=== PATIENT | female | born 1980 | race Caucasian/White ===

== ENCOUNTER → 2023-06-09 15:26 | Outpatient (REF) | payer BC, SELFPAY | LOC: HWWDC 15:26 | PROVIDERS: ATTENDING PHYSICIAN Obstetrics & Gynecology; FAMILY PHYSICIAN Nurse Practitioner | DX: Z12.31 Encounter for screening mammogram for malignant neoplasm of breast (principal) | CPT/HCPCS: 77063; 77067 ==

== ENCOUNTER 2023-10-05 20:51 | Emergency (ER) | payer BC, SELFPAY ==
[2023-10-05 20:53] VITALS: BP 124/71
--- NOTE | 2023-10-05 21:21 | ED.GENMED ---
History of Present Illness
General
Chief Complaint: DVT/Possible Blood Clot
Source: patient and spouse
Exam Limitations: none
Time Seen by Provider: 10/05/23 21:09
Nursing documentation reviewed up to this point in time: agreed with
History of Present Illness
History of Present Illness:
42-year-old female presents to the emergency room for evaluation of redness and swelling of the right leg. Patient reports that yesterday she noticed an area of redness and pain on the right anterior bahena. Today redness was increased and she had
some increased swelling in the anterior bahena; she was concerned that potentially she have a DVT and so she came to the emergency to be assessed. She is on HRT for perimenopausal symptoms. She denies smoking history. Denies any history of DVT/PE.
She denies any other complaints including chest pain or shortness of breath.
Past History
Past History
ED Past Medical History: None
ED Past Surgical History: None
Review of Systems
Review of Systems
All Other Systems: ROS reviewed and negative except as documented in HPI and ROS
Constitutional: Denies fever
Respiratory: Denies trouble breathing
Cardiac: Denies chest pain
Musculoskeletal: Reports other (Minor swelling and redness in the leg)
Phy Exam
Physical Exam
Physical Exam:
General: Well appearing and non-toxic
HEENT: protecting airway
Neck: appears supple
CV: No evidence of cyanosis
Resp: No accessory muscle use
Abd: Non-distended
Extremities: Patient has small area approximately 3 cm diameter circular erythema on the right anterior bahena slightly warm to the touch no induration, no crepitus, no fluctuance; tiny central marking which could be a puncture or bite
Neuro: Alert
Psych: Normal affect
Skin: Intact
Scores
Heart Failure Risk
Heart Failure Risk Score: Not Applicable
Heart Score for Chest Pain Patients
STEMI patient?: Not applicable
Withdrawal Assessment of Alcohol
Withdrawal Assessment Completed?: Not applicable
Course
Orders/Labs/Results
Orders:
Orders
10/05/23 21:20
US Periph Venous LOWER Ext RT Urgent
Comment:
Reason For Exam: RLE redness and swelling
10/05/23 23:05
Cephalexin Monohydrate [Keflex] 500 mg .ROUTE .STK-MED ONE
10/05/23 23:06
Cephalexin Monohydrate [Keflex] 500 mg PO NOW STA
Vital Signs
Initial and Last Documented VS:
Initial Vital Signs
Temp Pulse Resp BP Pulse Ox
36.8 C 106 20 124/71 98
10/05/23 20:53 10/05/23 20:53 10/05/23 20:53 10/05/23 20:53 10/05/23 20:53
Last Documented Vital Signs
Temp Pulse Resp BP Pulse Ox
36.8 C 106 20 124/71 98
10/05/23 20:53 10/05/23 20:53 10/05/23 20:53 10/05/23 20:53 10/05/23 20:53
MDM/Problems Addressed
Differential Diagnosis Includes:
Cellulitis, DVT, insect bite with local information
MDM/Problems Addressed:
42-year-old female presents with pain and redness, localized swelling anterior right lower leg. She is on HRT for perimenopausal symptoms and was concerned potentially for DVT. She denies any known trauma. Vitals and exam as above. Sent for
right lower extremity ultrasound was negative for DVT. Suspect more likely that this is either a insect bite with local inflammation or perhaps an early cellulitis. I did shanti the area will start on a short course of antibiotics. Follow-up with
PCP as an outpatient.
*Radiology
Radiology exam reviewed: radiology read reviewed
*Pulse Oximetry
Patient hypoxic: no
*Critical Care Note
Total Time (30-74mins, 75-104mins- exclusive of procedures): Not Applicable
Data Reviewed
Source: patient and spouse
ED Attending Note
-
Portions of this chart may have been created with voice recognition software.� Occasional wrong word or��sound alike� substitutions may have occurred due to the inherent limitations of voice recognition software.
Discharge Plan
Departure
Patient Disposition: Home (Routine Discharge)
Date of Disposition: 10/05/23
Time of Disposition: 22:45
Patient with high blood pressure during this ER visit?: No
Discharge Problem:
Cellulitis
Instructions: Cellulitis (Skin Infection), Adult (DC)
Prescriptions:
New
cephalexin 500 mg tablet
500 mg PO QID 5 Days Qty: 20 0RF
No Action
[id number]-[id number] 1 DROP drops,suspension
2 drp otic (ear) TID Qty: 1 0RF
Referrals:
Gayla Guerrero CRNP [Family Provider] - Call in 1-3 days for appt
Activity Restrictions/Additional Instructions:
Thank you for visiting the Emergency Department at [facility].
1. Please schedule a follow up appointment as directed. Call first thing tomorrow morning to make an appointment.
2. If indicated, please take your medications as instructed and indicated on discharge paperwork.
3. If any of your symptoms do not improve, or persist, or become more severe within 6-12 hours, please return to the emergency department for further care.
4. Please return to the emergency department if you develop a headache, neck pain/stiffness, fever greater than 100.4F, chest pain, shortness of breath, persistent nausea, vomiting, slurred speech, difficulty walking, numbness/tingling, weakness,
signs of infection or any other symptoms that are worrisome to you.
Please call [phone] if you have any questions.
Interventions
Interventions:
*Risk Screen - Suicide Last Done: 10/05/23 21:18
*General Assessment Last Done: 10/05/23 21:18
*Neglect/Abuse Screening Last Done: 10/05/23 21:18
ED- Fall Risk Assessment Last Done: 10/05/23 21:17
*ED COVID-19 Vaccine History Last Done: 10/05/23 21:18
*Nursing Disposition Last Done: 10/05/23 23:00
ED- Cardiac Assessment Last Done: 10/05/23 21:17
ED- Pulmonary Assessment Last Done: 10/05/23 21:17
ED-Peripheral Vascular Assessment Last Done: 10/05/23 21:16
ED-Skin Assessment Last Done: 10/05/23 21:15
Discharge Date and Time
Discharge Date/Time: 10/05/23 23:10
Print Language: TAJIK
[2023-10-05] MEDS: KEFLEX 500 MG PO (23:08)
== END 2023-10-05 23:10 | disposition home or self-care (01) ==
LOC: EMR 20:51
PROVIDERS: EMERGENCY PHYSICIAN Emergency Medicine; FAMILY PHYSICIAN Nurse Practitioner
DX: L03.115 Cellulitis of right lower limb (principal); M79.661 Pain in right lower leg; R22.41 Localized swelling, mass and lump, right lower limb; Z79.890 Hormone replacement therapy; Z88.1 Allergy status to other antibiotic agents; Z88.2 Allergy status to sulfonamides
CPT/HCPCS: 99284; 93971

== ENCOUNTER → 2023-12-02 07:34 | Outpatient (REF) | payer BC, SELFPAY ==
[2023-12-02 09:16] LABS: % Basophils 0.5 % (0-2); % Eosinophils 1.5 % (0-6); % Immature Granulocytes 0.3 % (0-0.5); % Lymphocytes 32.4 % (20.5-51.1); % Monocytes 7.4 % (1.7-9.3); % Neutrophils 57.9 % (42.2-75.2); Absolute Eosinophils 0.1 10^3/uL (0-0.7); Absolute Lymphocytes 1.9 10^3/uL (1.2-3.4); Absolute Monocytes 0.4 10^3/uL (0.1-0.6); Absolute Neutrophils 3.5 10^3/uL (1.4-6.5); Hematocrit 36.4 % (37.0-47.0); Hemoglobin 12.4 g/dL (12.0-16.0); Mean Corp Hgb Conc. 34.1 g/dL (33.0-37.0); Mean Corpuscular Hgb 32.3 pg (27.0-31.0); Mean Corpuscular Volume 94.8 fL (81.0-99.0); Mean Platelet Volume 10.2 fL (7.4-10.4); Nucleated Red Blood Cells % 0 %; Platelet Count 229 10^3/uL (130-400); Red Blood Cell Count 3.84 10^6/uL (4.20-5.40); Red Cell Dist. Width 12.3 % (11.5-14.5)
[2023-12-02 10:20] LABS: ALT (SGPT) 21 U/L (0-35); AST (SGOT) 31 U/L (14-36); Albumin 4.8 g/dl (3.5-5.0); Alkaline Phosphatase 61 U/L (38-126); Blood Urea Nitrogen 12 mg/dl (7-17); Calcium 9.2 mg/dl (8.4-10.2); Carbon Dioxide 23 mmol/L (22-30); Chloride 103 mmol/L (98-107); Glucose 73 mg/dl (70-99); Potassium 4.6 mmol/L (3.5-5.1); Sodium 141 mmol/L (135-145); Total Bilirubin 0.4 mg/dl (0.2-1.3); Total Cholesterol 191 mg/dl (50-199); Total Protein 7.3 g/dl (6.3-8.2); Triglyceride 128 mg/dl (10-149); Very Low Density Lipoprotein 25 mg/dl (0-30); eGFR > 60.00
[2023-12-02 10:36] LABS: HDL Cholesterol 154 mg/dl; LDL Cholesterol, Calculated 12 mg/dl
[2023-12-02 11:29] LABS: Vitamin D, 25-OH*** 43.1 ng/mL (30-80)
[2023-12-02 11:43] LABS: TSH 0.66 uIU/ml (0.47-4.68)
[2023-12-03 12:49] LABS: Intact PTH 36.5 pg/ml (13.6-85.8)
== END ==
LOC: REG 07:34
PROVIDERS: ATTENDING PHYSICIAN Physician Assistant Medical
DX: Z00.00 Encounter for general adult medical examination without abnormal findings (principal); Z98.890 Other specified postprocedural states
CPT/HCPCS: 36415; 80053; 80061; 82306; 83970; 84443; 85025

== ENCOUNTER → 2024-01-05 07:46 | Outpatient (REF) | payer BC, SELFPAY ==
[2024-01-05 08:53] LABS: % Basophils 0.4 % (0-2); % Eosinophils 1.8 % (0-6); % Immature Granulocytes 0.4 % (0-0.5); % Monocytes 11.2 % (1.7-9.3); % Neutrophils 53.2 % (42.2-75.2); Absolute Eosinophils 0.1 10^3/uL (0-0.7); Absolute Lymphocytes 1.5 10^3/uL (1.2-3.4); Absolute Monocytes 0.5 10^3/uL (0.1-0.6); Absolute Neutrophils 2.4 10^3/uL (1.4-6.5); Hematocrit 37.8 % (37.0-47.0); Hemoglobin 12.9 g/dL (12.0-16.0); Mean Corp Hgb Conc. 34.1 g/dL (33.0-37.0); Mean Corpuscular Hgb 32.3 pg (27.0-31.0); Mean Corpuscular Volume 94.7 fL (81.0-99.0); Mean Platelet Volume 10.1 fL (7.4-10.4); Nucleated Red Blood Cells % 0 %; Platelet Count 213 10^3/uL (130-400); Red Blood Cell Count 3.99 10^6/uL (4.20-5.40); Red Cell Dist. Width 12.6 % (11.5-14.5); White Blood Cell Count 4.5 10^3/uL (4.8-10.8)
[2024-01-05 09:30] LABS: Total Cholesterol 214 mg/dl (50-199); Triglyceride 74 mg/dl (10-149); Very Low Density Lipoprotein 14 mg/dl (0-30)
[2024-01-05 09:44] LABS: HDL Cholesterol 159 mg/dl; LDL Cholesterol, Calculated 41 mg/dl
== END ==
LOC: REG 07:46
PROVIDERS: ATTENDING PHYSICIAN Physician Assistant Medical
DX: R79.9 Abnormal finding of blood chemistry, unspecified (principal); E78.6 Lipoprotein deficiency; E78.89 Other lipoprotein metabolism disorders
CPT/HCPCS: 36415; 80061; 85025

== ENCOUNTER → 2024-01-10 12:35 | Outpatient (REF) | payer BC, SELFPAY ==
[2024-01-10 13:51] LABS: % Basophils 0.4 % (0-2); % Eosinophils 0.1 % (0-6); % Immature Granulocytes 0.2 % (0-0.5); % Lymphocytes 23.2 % (20.5-51.1); % Monocytes 6.8 % (1.7-9.3); % Neutrophils 69.3 % (42.2-75.2); Absolute Lymphocytes 1.9 10^3/uL (1.2-3.4); Absolute Monocytes 0.6 10^3/uL (0.1-0.6); Absolute Neutrophils 5.7 10^3/uL (1.4-6.5); Hematocrit 37.3 % (37.0-47.0); Hemoglobin 12.6 g/dL (12.0-16.0); Mean Corp Hgb Conc. 33.8 g/dL (33.0-37.0); Mean Corpuscular Hgb 31.4 pg (27.0-31.0); Mean Platelet Volume 9.9 fL (7.4-10.4); Nucleated Red Blood Cells % 0 %; Platelet Count 205 10^3/uL (130-400); Red Blood Cell Count 4.01 10^6/uL (4.20-5.40); Red Cell Dist. Width 12.9 % (11.5-14.5); White Blood Cell Count 8.2 10^3/uL (4.8-10.8)
[2024-01-10 15:11] LABS: Vitamin B12 254 pg/ml (239-931)
== END ==
LOC: REG 12:35
PROVIDERS: ATTENDING PHYSICIAN Physician Assistant Medical
DX: R79.9 Abnormal finding of blood chemistry, unspecified (principal); E78.6 Lipoprotein deficiency; E78.89 Other lipoprotein metabolism disorders
CPT/HCPCS: 36415; 82607; 85025

== ENCOUNTER 2024-01-23 12:06 | Emergency (ER) | payer BC, SELFPAY ==
[2024-01-23 12:15] VITALS: BP 152/88
[2024-01-23 12:41] LABS: % Basophils 0.4 % (0-2); % Eosinophils 0.1 % (0-6); % Immature Granulocytes 0.4 % (0-0.5); % Lymphocytes 19.4 % (20.5-51.1); % Monocytes 5.7 % (1.7-9.3); Absolute Lymphocytes 1.4 10^3/uL (1.2-3.4); Absolute Monocytes 0.4 10^3/uL (0.1-0.6); Absolute Neutrophils 5.3 10^3/uL (1.4-6.5); Hematocrit 35.6 % (37.0-47.0); Hemoglobin 12.3 g/dL (12.0-16.0); Mean Corp Hgb Conc. 34.6 g/dL (33.0-37.0); Mean Corpuscular Volume 92.7 fL (81.0-99.0); Nucleated Red Blood Cells % 0 %; Platelet Count 185 10^3/uL (130-400); Red Blood Cell Count 3.84 10^6/uL (4.20-5.40); Red Cell Dist. Width 13.3 % (11.5-14.5); White Blood Cell Count 7.2 10^3/uL (4.8-10.8)
[2024-01-23 12:51] LABS: ALT (SGPT) 26 U/L (0-35); AST (SGOT) 51 U/L (14-36); Albumin 4.9 g/dl (3.5-5.0); Alkaline Phosphatase 89 U/L (38-126); Blood Urea Nitrogen 11 mg/dl (7-17); Calcium 9.1 mg/dl (8.4-10.2); Carbon Dioxide 24 mmol/L (22-30); Chloride 100 mmol/L (98-107); Glucose 90 mg/dl (70-99); Potassium 4.1 mmol/L (3.5-5.1); Sodium 135 mmol/L (135-145); Total Bilirubin 1.3 mg/dl (0.2-1.3); Total Protein 7.4 g/dl (6.3-8.2); eGFR > 60.00
[2024-01-23 13:03] LABS: Troponin I < 0.012 ng/ml
[2024-01-23 13:21] LABS: TSH 1.03 uIU/ml (0.47-4.68)
--- NOTE | 2024-01-23 15:43 | ED.GENMED ---
History of Present Illness
General
Chief Complaint: Chest Pain
Source: patient
Time Seen by Provider: 01/23/24 15:28
History of Present Illness
History of Present Illness:
43yoF with a history of anxiety and prior parathyroidectomy presenting with her for evaluation of chest pain. Patient has been having intermittent palpitations and elevated heart rates for quite some time. She was seen by her PCP about 2
weeks ago for the same. An EKG was done and she was told there was her [place] interval was shortened and she was referred to cardiology. This appointment is scheduled later this month. Patient woke up this morning and noticed that her heart was
racing. Her heart rate was up to 134 on her Apple Watch. She was sitting down at her desk around 8 AM when she started to experience a discomfort in her left chest. Pain radiates to the left upper arm. Pain has been constant since this morning.
She denies any associated shortness of breath, vomiting, paresthesias, syncope. Of note, patient drinks several glasses of wine daily.
Past History
Past History
ED Past Medical History: None
ED Past Surgical History: None
Phy Exam
General Physical Exam
General Presentation: well appearing and no apparent distress
General age: appears stated age
General Skin: warm and dry
General Habitus: normal
General Mental: alert
General Hydration: appears well hydrated
ENT Exam
ENT Exam: normocephalic
Cardiovascular Exam
Cardiovascular Exam: regular rate/rhythm, no edema, no murmur and normal peripheral pulses (2+ DP pulses bilaterally)
Pulmonary Exam
Pulmonary Exam: lungs clear, no respiratory distress, no rales, no crackles, no rhonchi and no wheezing
Neurological Exam
Neurological Exam: alert
[place] Coma Scale
Eye Opening: Spontaneous
Verbal Response: Oriented
Motor Response: Obeys Commands
GCS Total Score: 15
Skin Exam
Skin Exam: normal color and warm/dry
Psychiatric Exam
Psychiatric Exam: normal mood/affect
Scores
Heart Score for Chest Pain Patients
STEMI patient?: No
History: Slightly or Non-Suspicious
ECG: Normal
Age: </= 45 years
Risk Factors: No Risk Factors
Troponin: </= Normal Limit
Heart Score for Chest Pain Patients: 0
Heart Score Risk: 2.5% MACE over next 6 weeks
Course
Orders/Labs/Results
Orders:
Orders
01/23/24 12:06
EKG [Electrocardiogram (*1)] Urgent
Reason for Study: Chest Pain
01/23/24 12:07
EKG- Treatment ONCE
01/23/24 12:29
Complete Blood Count/With Diff Urgent
Comprehensive Metabolic Panel Urgent
HCG, Serum Qualitative Screen Urgent
Comment: ADD ON
Magnesium Urgent
Comment: ADD ON
TSH Urgent
Troponin I Urgent
01/23/24 15:41
Add On- LAB Urgent
Tests Added?: magnesium, HCG
01/23/24 15:42
Electrocardiogram (*1) Urgent
Reason for Study: Chest Pain
EKG- Treatment ONCE
CR Chest - 2 Views Urgent
Comment:
Reason For Exam: CP
01/23/24 16:08
D-Dimer Urgent
Troponin I Urgent
01/23/24 16:26
Magnesium Sulfate 1 G/D5w [Magnesium Sulfate] 1 gm in 100 ml IV NOW
Abnormal Lab Results
01/23/24
12:29
RBC 3.84 L 10^6/uL
(4.20-5.40)
Hct 35.6 L %
(37.0-47.0)
MCH 32.0 H pg
(27.0-31.0)
Lymphocytes % 19.4 L %
(20.5-51.1)
Creatinine 0.5 L mg/dL
(0.6-1.0)
Magnesium 1.5 L mg/dl
(1.6-2.3)
AST 51 H U/L
(14-36)
01/23/24 12:29
01/23/24 12:29
Vital Signs
Initial and Last Documented VS:
Initial Vital Signs
Temp Pulse Resp BP Pulse Ox
98.1 F 106 16 152/88 98
01/23/24 12:15 01/23/24 12:15 01/23/24 12:15 01/23/24 12:15 01/23/24 12:15
Last Documented Vital Signs
Temp Pulse Resp BP Pulse Ox
98.1 F 90 17 140/86 97
01/23/24 12:15 01/23/24 17:30 01/23/24 17:30 01/23/24 17:16 01/23/24 17:30
MDM/Problems Addressed
Differential Diagnosis Includes:
43yoF here with L sided chest pain that began this morning. Also having intermittent palpitations for a while. No SOB or syncope. HR 106 in triage. BP mildly elevated. Remainder of vitals are stable. She is well appearing in no distress. Exam is
reassuring. Differential diagnosis includes but is not limited to: arrhythmia, thyroid dysfunction, electrolyte abnormality, ACS, PE
Initial ED plan: Cardiac labs, TSH, and EKG obtained in triage. EKG shows sinus tachycardia without ischemic changes and troponin WNL. TSH also normal. Will check D-dimer, repeat EKG/troponin, and CXR.
*EKG
Interpreted by ED Provider?: Yes
EKG Intrepretation Date: 01/23/24
Heart Rate: 102
Rate: tachycardiac
Rhythm: sinus
Parkman: normal axis
Interval: normal interval
QRS Pattern: normal QRS
Ischemia: no ischemia
*Critical Care Note
Total Time (30-74mins, 75-104mins- exclusive of procedures): Not Applicable
Update Note
Update Note:
Repeat EKG shows NSR with short [place] interval. No ischemic changes or ectopy noted. Delta troponin unchanged. Magnesium mildly low at 1.5 which was replaced. CXR is clear. No telemetry events during ED stay. No indication for hospitalization at this
time. She was advised to follow-up with her PCP for possible Holter monitor. She does have an appointment with cardiology scheduled later this month. ED return precautions discussed. She expressed understanding and is agreement with plan. She
was discharged in stable condition.
ED Attending Note
-
Portions of this chart may have been created with voice recognition software.� Occasional wrong word or��sound alike� substitutions may have occurred due to the inherent limitations of voice recognition software.
Discharge Plan
Departure
Patient Disposition: Home (Routine Discharge)
Date of Disposition: 01/23/24
Time of Disposition: 17:17
Patient with high blood pressure during this ER visit?: Yes
Discharge Problem:
Palpitations, Chest pain
Instructions: Palpitations ED
Prescriptions:
No Action
[id number]-[id number] 1 DROP drops,suspension
2 drp otic (ear) TID Qty: 1 0RF
cephalexin 500 mg tablet
500 mg PO QID 5 Days Qty: 20 0RF
Referrals:
Wilmer Dukes PA-C [Family Provider] -
Luis Hatfield MD [Active] -
Activity Restrictions/Additional Instructions:
Please call your family doctor tomorrow and discuss having a Holter monitor. You should also follow up with cardiology.
Return to the ER with any new or worsening symptoms.
Interventions
Interventions:
*Risk Screen - Suicide Last Done: 01/23/24 16:03
*General Assessment Last Done: 01/23/24 16:03
ED- Fall Risk Assessment Last Done: 01/23/24 16:03
*ED COVID-19 Vaccine History Last Done: 01/23/24 16:03
*Nursing Disposition Last Done: 01/23/24 17:50
ED- Cardiac Assessment Last Done: 01/23/24 16:03
Discharge Date and Time
Discharge Date/Time: 01/23/24 17:50
Print Language: MONTENEGRIN
[2024-01-23 16:01] VITALS: BP 133/108
[2024-01-23 16:03] VITALS: BMI 19.8
[2024-01-23 16:25] LABS: Magnesium 1.5 mg/dl (1.6-2.3)
[2024-01-23 16:39] LABS: D-Dimer < 0.27 ug/mlFEU (0.00-0.50)
[2024-01-23 16:40] LABS: Troponin I < 0.012 ng/ml
[2024-01-23] MEDS: MAGNESIUM SULFATE 100 IV (16:45)
[2024-01-23 16:52] LABS: HCG, Serum Qualitative Screen Negative
[2024-01-23 17:16] VITALS: BP 140/86
== END 2024-01-23 17:50 | disposition home or self-care (01) ==
LOC: EMR 12:06
PROVIDERS: Emergency Medicine; Physician Assistant; EMERGENCY PHYSICIAN Emergency Medicine; FAMILY PHYSICIAN Physician Assistant Medical
DX: R07.89 Other chest pain (principal); R00.2 Palpitations; M79.622 Pain in left upper arm; R03.0 Elevated blood-pressure reading, without diagnosis of hypertension; Z88.1 Allergy status to other antibiotic agents; Z88.2 Allergy status to sulfonamides; F41.9 Anxiety disorder, unspecified
CPT/HCPCS: 99284; 96374; 71046; 80053; 83735; 84443; 84484; 84703; 85025; 85379; 93005

== ENCOUNTER → 2024-02-06 09:21 | Outpatient (REF) | payer BC, SELFPAY | LOC: RCS 09:21 | PROVIDERS: ATTENDING PHYSICIAN Internal Medicine Cardiovascular Disease; FAMILY PHYSICIAN Physician Assistant Medical | DX: R07.89 Other chest pain (principal); R00.2 Palpitations; Z01.810 Encounter for preprocedural cardiovascular examination | CPT/HCPCS: 93225; 93226 ==

== ENCOUNTER → 2024-02-10 08:03 | Outpatient (REF) | payer BC, SELFPAY ==
[2024-02-10 09:39] LABS: TSH 0.58 uIU/ml (0.47-4.68)
== END ==
LOC: REG 08:03
PROVIDERS: ATTENDING PHYSICIAN Internal Medicine Cardiovascular Disease
DX: R79.89 Other specified abnormal findings of blood chemistry (principal); Z86.39 Personal history of other endocrine, nutritional and metabolic disease; R79.0 Abnormal level of blood mineral
CPT/HCPCS: 36415; 83835; 84443

== ENCOUNTER → 2024-03-06 14:26 | Outpatient (REF) | payer BC, SELFPAY | LOC: RCS 14:26 | PROVIDERS: ATTENDING PHYSICIAN Internal Medicine Cardiovascular Disease; FAMILY PHYSICIAN Physician Assistant Medical | DX: R07.89 Other chest pain (principal); R00.2 Palpitations; Z01.810 Encounter for preprocedural cardiovascular examination | CPT/HCPCS: 93306 ==

== ENCOUNTER 2024-05-27 16:57 | Inpatient (IN) | payer BC, SELFPAY ==
[2024-05-27] VITALS (35 sets, daily range): BP systolic 85–119; BP diastolic 54–91
--- NOTE | 2024-05-27 12:56 | ED.GENMED ---
History of Present Illness
<Osmani Parker MD - Last Filed: 05/27/24 13:00>
General
Chief Complaint: Overdose Intentional
Time Seen by Provider: 05/27/24 12:47
History of Present Illness
History of Present Illness:
Patient presents to the emergency department with altered mental status. Her last known well was 9 AM. Her found her difficult to arouse on the bed when he got home. She told him that she overdosed on alprazolam. Patient is somnolent and
unable to provide reliable history. she has a prescription for Xanax last filled in September 2023 for 30 0.25 mg tablets
Past History
<Osmani Parker MD - Last Filed: 05/27/24 13:00>
Past History
ED Past Medical History: None
ED Past Surgical History: None
Phy Exam
<Osmani Parker MD - Last Filed: 05/27/24 13:00>
Physical Exam
Physical Exam:
GENERAL APPEARANCE: No acute distress, well-developed, tired appearing
EYES lids/conjunctiva normal
EARS/NOSE/THROAT Mucous membranes moist, uvula midline without oral pharyngeal erythema, exudate or swelling
HEAD/NECK normocephalic atraumatic, neck is supple.
RESPIRATORY respiratory effort normal, speaks in full sentences, no accessory muscle use. Lungs clear to auscultation without rhonchi, wheezes, rales
CARDIAC Regular rate and rhythm, no edema.
ABDOMINAL Soft, ND/NT. No pulsatile masses on exam, rebound tenderness, Montiel sign or pain over Mcburney's point.
MUSCLES/EXTREMITIES No abnormal range of motion, no swelling.
SKIN Warm, pink and dry. No rashes
NEUROLOGICAL very slow movements and poor attention. She is awake but somnolent, moves all extremities. Cranial nerves grossly intact. Sensation intact all extremities.
PSYCH unable to assess
Course
<Osmani Parker MD - Last Filed: 05/27/24 13:00>
Orders/Labs/Results
Orders:
Orders
05/27/24 12:25
1:1 Observation - Suicide/ Violent Behavior As Directed
Crisis Consult Urgent
Reason for Consult: SI
05/27/24 12:28
EKG [Electrocardiogram (*1)] Urgent
Reason for Study: Fatigue / Weakness
EKG- Treatment ONCE
05/27/24 12:55
CT Head W/o Iv Contrast Urgent
Comment:
Reason For Exam: altered mental status
Test Result ONCE
05/27/24 12:59
Acetaminophen Urgent
Alcohol Urgent
Complete Blood Count/With Diff Urgent
Comprehensive Metabolic Panel Urgent
HCG, Serum Qualitative Screen Urgent
Magnesium Urgent
Comment: ADD ON
Phosphorus Urgent
Comment: ADD ON
Salicylate Urgent
05/27/24 13:05
Fentanyl, Urine Urgent
Urinalysis Reflex To Culture Urgent
Date Specimen was Collected: 05/27/24
Time Specimen was Collected: 13:00
Urine Drug Abuse Screen Urgent
Date Specimen was Collected: 05/27/24
Time Specimen was Collected: 13:00
05/27/24 14:[address] Non Medication Order As Directed
Physician Order: end tidal co2, thanks
05/27/24 15:02
0.9% Sodium Chloride 1000 ml [Nss] 1,000 ml IV BOLUS
05/27/24 16:14
Admit/Transfer Patient As Directed
Co-Sign Provider:
Level of Care: Inpatient admission
Assign to:: Telemetry
Physician / Group: Chio Sevilla
Diagnosis: Benzodiazepine overdose
Reason for Telemetry: Chest Pain syndromes
Date to Stop Telemetry: 05/29/24
Time to Stop Telemetry: 11:00
Reason for Hospitalization: Benzodiazepine overdose
Expected length of stay greater than two midnights?: Yes
ELOS- Estimated Length of Stay in days: 2
I certify the patient meets the requirements for IP care: Yes
PRN Pain Medication Management As Directed
May give lesser potent ordered pain med per pt: Yes
preference::
Protocol:: Medication orders for pain may be administered in a
manner that supports deferring to patient preference
when the pt is:
- Requesting an ordered lesser potent pain medication.
Least to most potent pain medications are defined
as: acetaminophen < NSAID < tramadol < opioids
(morphine, oxycodone, hydromorphone).
- Requesting a lesser dose of the same medication IF
ORDERED.
- Requesting a less intrusive route of administration
if both routes are prescribed by the provider (PO <
IV).
05/27/24 16:18
Code Status As Directed
Resuscitation Status: Full Code
05/27/24 16:46
Add On- LAB Routine
Tests Added?: Magnesium, Phosphorous
05/29/24 11:00
DC Protocol for Telemetry ONCE
Abnormal Lab Results
05/27/24 05/27/24
12:59 13:05
RBC 3.74 L 10^6/uL
(4.20-5.40)
Hgb 11.7 L g/dL
(12.0-16.0)
Hct 34.1 L %
(37.0-47.0)
MCH 31.3 H pg
(27.0-31.0)
Glucose 104 H mg/dl
(70-99)
Salicylates < 1.0 L mg/dl
(2.0-20.0)
Acetaminophen < 10 L ug/ml
(10-30)
U Benzodiazepines Scrn Positive H
(Negative)
05/27/24 12:59
05/27/24 12:59
Vital Signs
Initial and Last Documented VS:
Initial Vital Signs
Temp Pulse Resp BP Pulse Ox
97.3 F 103 18 99/72 98
05/27/24 12:19 05/27/24 12:19 05/27/24 12:19 05/27/24 12:19 05/27/24 12:19
Last Documented Vital Signs
Temp Pulse Resp BP Pulse Ox
97.3 F 95 17 107/73 98
05/27/24 12:19 05/27/24 16:30 05/27/24 16:30 05/27/24 16:30 05/27/24 16:30
<Nehemiah Art, DO - Last Filed: 05/27/24 16:56>
Orders/Labs/Results
Orders:
Orders
05/27/24 12:25
1:1 Observation - Suicide/ Violent Behavior As Directed
Crisis Consult Urgent
Reason for Consult: SI
05/27/24 12:28
EKG [Electrocardiogram (*1)] Urgent
Reason for Study: Fatigue / Weakness
EKG- Treatment ONCE
05/27/24 12:55
CT Head W/o Iv Contrast Urgent
Comment:
Reason For Exam: altered mental status
Test Result ONCE
05/27/24 12:59
Acetaminophen Urgent
Alcohol Urgent
Complete Blood Count/With Diff Urgent
Comprehensive Metabolic Panel Urgent
HCG, Serum Qualitative Screen Urgent
Magnesium Urgent
Comment: ADD ON
Phosphorus Urgent
Comment: ADD ON
Salicylate Urgent
05/27/24 13:05
Fentanyl, Urine Urgent
Urinalysis Reflex To Culture Urgent
Date Specimen was Collected: 05/27/24
Time Specimen was Collected: 13:00
Urine Drug Abuse Screen Urgent
Date Specimen was Collected: 05/27/24
Time Specimen was Collected: 13:00
05/27/24 14:[address] Non Medication Order As Directed
Physician Order: end tidal co2, thanks
05/27/24 15:02
0.9% Sodium Chloride 1000 ml [Nss] 1,000 ml IV BOLUS
05/27/24 16:14
Admit/Transfer Patient As Directed
Co-Sign Provider:
Level of Care: Inpatient admission
Assign to:: Telemetry
Physician / Group: Chio Sevilla
Diagnosis: Benzodiazepine overdose
Reason for Telemetry: Chest Pain syndromes
Date to Stop Telemetry: 05/29/24
Time to Stop Telemetry: 11:00
Reason for Hospitalization: Benzodiazepine overdose
Expected length of stay greater than two midnights?: Yes
ELOS- Estimated Length of Stay in days: 2
I certify the patient meets the requirements for IP care: Yes
PRN Pain Medication Management As Directed
May give lesser potent ordered pain med per pt: Yes
preference::
Protocol:: Medication orders for pain may be administered in a
manner that supports deferring to patient preference
when the pt is:
- Requesting an ordered lesser potent pain medication.
Least to most potent pain medications are defined
as: acetaminophen < NSAID < tramadol < opioids
(morphine, oxycodone, hydromorphone).
- Requesting a lesser dose of the same medication IF
ORDERED.
- Requesting a less intrusive route of administration
if both routes are prescribed by the provider (PO <
IV).
05/27/24 16:18
Code Status As Directed
Resuscitation Status: Full Code
05/27/24 16:46
Add On- LAB Routine
Tests Added?: Magnesium, Phosphorous
05/29/24 11:00
DC Protocol for Telemetry ONCE
Abnormal Lab Results
05/27/24 05/27/24
12:59 13:05
RBC 3.74 L 10^6/uL
(4.20-5.40)
Hgb 11.7 L g/dL
(12.0-16.0)
Hct 34.1 L %
(37.0-47.0)
MCH 31.3 H pg
(27.0-31.0)
Glucose 104 H mg/dl
(70-99)
Salicylates < 1.0 L mg/dl
(2.0-20.0)
Acetaminophen < 10 L ug/ml
(10-30)
U Benzodiazepines Scrn Positive H
(Negative)
05/27/24 12:59
05/27/24 12:59
Vital Signs
Initial and Last Documented VS:
Initial Vital Signs
Temp Pulse Resp BP Pulse Ox
97.3 F 103 18 99/72 98
05/27/24 12:19 05/27/24 12:19 05/27/24 12:19 05/27/24 12:19 05/27/24 12:19
Last Documented Vital Signs
Temp Pulse Resp BP Pulse Ox
97.3 F 95 17 107/73 98
05/27/24 12:19 05/27/24 16:30 05/27/24 16:30 05/27/24 16:30 05/27/24 16:30
<Nehemiah Art DO - Last Filed: 05/27/24 16:56>
*Critical Care Note
Total Time (30-74mins, 75-104mins- exclusive of procedures): 30
<Nehemiah Art DO - Last Filed: 05/27/24 16:56>
Update Note
Update Note:
2 PM ER attending, signout pending reevaluation sobriety benzodiazepine alcohol overdose crisis is already seen the patient on exam patient is somnolent but arousable maintaining airway, reviewed typical course with . Of observation here for
psychiatric placement if she were to worsen neck step but would be enhanced airway maneuvers intubation/ventilation if needed, will follow closely
3 PM blood pressure into the 80s already received a liter saline will give a second liter follow closely
ED Attending Note
<Osmani Parker MD - Last Filed: 05/27/24 13:00>
ED Attending Note
ED Attending Note:
Patient presents with altered mental status likely in the setting of intentional overdose of benzodiazepines. Patient with acceptable mental status at this time, will keep close eye on her on registered nurse cardiac. Will obtain labs and CT head to rule
out alternative etiologies. Patient placed on a one-to-one, crisis consult
-
Portions of this chart may have been created with voice recognition software.� Occasional wrong word or��sound alike� substitutions may have occurred due to the inherent limitations of voice recognition software.
Discharge Plan
Departure
Patient Disposition: Admit
Date of Disposition: 05/27/24
Time of Disposition: 15:26
Admit to: ICU
Presentation/result/management discussed w/ accepting MD/DO: Hospitalist
Condition: Fair
Covid-19: Not Applicable
Discharge Problem:
Xanax overdose, Alcohol intoxication
Prescriptions:
No Action
yduyfggn-bbtxspiln-GU 1 DROP drops,suspension
2 drp otic (ear) TID Qty: 1 0RF
cephalexin 500 mg tablet
500 mg PO QID 5 Days Qty: 20 0RF
Referrals:
Wilmer Dukes PA-C [Family Provider] -
Interventions
Interventions:
*Risk Screen - Suicide Last Done: 05/27/24 12:19
*General Assessment Last Done: 05/27/24 13:47
*Neglect/Abuse Screening Last Done: 05/27/24 12:19
*ED- Fall Risk Assessment Last Done: 05/27/24 13:47
*ED COVID-19 Vaccine History Last Done: 05/27/24 13:47
ED- Cardiac Assessment Last Done: 05/27/24 13:47
ED- Neurological Assessment Last Done: 05/27/24 13:47
ED-Psychological Assessment Last Done: 05/27/24 13:47
ED- Pulmonary Assessment Last Done: 05/27/24 13:47
Discharge Date and Time
Print Language: SLOVAK
[2024-05-27 13:05] LABS: % Basophils 0.3 % (0-2); % Eosinophils 0.7 % (0-6); % Immature Granulocytes 0.3 % (0-0.5); % Lymphocytes 36.1 % (20.5-51.1); % Monocytes 6.3 % (1.7-9.3); % Neutrophils 56.3 % (42.2-75.2); Absolute Eosinophils 0.1 10^3/uL (0-0.7); Absolute Lymphocytes 2.5 10^3/uL (1.2-3.4); Absolute Monocytes 0.4 10^3/uL (0.1-0.6); Absolute Neutrophils 3.9 10^3/uL (1.4-6.5); Hematocrit 34.1 % (37.0-47.0); Hemoglobin 11.7 g/dL (12.0-16.0); Mean Corp Hgb Conc. 34.3 g/dL (33.0-37.0); Mean Corpuscular Hgb 31.3 pg (27.0-31.0); Mean Corpuscular Volume 91.2 fL (81.0-99.0); Mean Platelet Volume 9.8 fL (7.4-10.4); Nucleated Red Blood Cells % 0 %; Platelet Count 204 10^3/uL (130-400); Red Blood Cell Count 3.74 10^6/uL (4.20-5.40); Red Cell Dist. Width 12.7 % (11.5-14.5)
[2024-05-27 13:11] LABS: Urine Albumin Negative (Neg - Trace); Urine Bilirubin Negative (Negative); Urine Character Clear (Clear); Urine Glucose Negative (Negative); Urine Ketone Negative (Negative); Urine Leukocyte Negative (Negative); Urine Nitrite Negative (Negative); Urine Occult Blood Negative (Negative); Urine Urobilinogen Negative (Neg - 1+)
[2024-05-27 13:12] LABS: Urine Color Straw
[2024-05-27 13:17] LABS: HCG, Serum Qualitative Screen Negative
[2024-05-27 13:21] LABS: ALT (SGPT) 21 U/L (0-35); AST (SGOT) 28 U/L (14-36); Acetaminophen < 10 ug/ml (10-30); Albumin 4.5 g/dl (3.5-5.0); Alcohol 292 mg/dl; Alkaline Phosphatase 74 U/L (38-126); Blood Urea Nitrogen 15 mg/dl (7-17); Calcium 9.2 mg/dl (8.4-10.2); Carbon Dioxide 26 mmol/L (22-30); Chloride 106 mmol/L (98-107); Glucose 104 mg/dl (70-99); Potassium 4.4 mmol/L (3.5-5.1); Salicylate < 1.0 mg/dl (2.0-20.0); Sodium 142 mmol/L (135-145); Total Bilirubin 0.5 mg/dl (0.2-1.3); Total Protein 7.2 g/dl (6.3-8.2); eGFR > 60.00
[2024-05-27 13:38] LABS: Amphetamines Negative (Negative); Barbiturates Negative (Negative); Benzodiazepines Positive (Negative); Buprenorphine Negative (Negative); Cocaine Negative (Negative); Marijuana Negative (Negative); Methadone Negative (Negative); Methamphetamines Negative (Negative); Opiates Negative (Negative); Phencyclidine Negative (Negative); Tricyclic Antidepressants Negative (Negative)
[2024-05-27 14:01] LABS: Fentanyl, Urine Negative (Negative)
[2024-05-27] MEDS: NSS 1000 IV (15:12)
--- NOTE | 2024-05-27 15:51 | HPS.HSE ---
Family Physician
-
Family Physician: Wilmer Dukes PA-C
Chief Complaint
-
change in mental status
History of Present Illness
Ms. Robyn Watters is a 43 yo woman who was brought to the ER with change in mental status in setting of taking Xanax and alcohol this morning.
History obtained by patient's partner at bedside. She was seen normal this morning. When came back she was unresponsive. He smelled alcohol and stated patient couldn't sit up by herself or walk. She reported taking a lot of Xanax, which
she is prescribed as needed.
Patient is waking up more after time spent being in the ER. She is able to answer simple yes or no questions for me.
No recent fevers/chills. No cough/congestion. No nausea/vomiting/diarrhea. She currently denies chest pain, denies abdominal pain.
Medical History
Past Medical History
Past Medical History: Reports None
Past Surgical History: Reports None
Social History
Tobacco: Non-smoker
Alcohol: Binge drinker (occasional )
Family History
Family History: Not pertinent
Allergies / Home Medications
Allergies reflects when Allergies were last updated in [facility].
Home Medications with original date entered in [facility]
Allergy/Medication List:
Allergies
Allergy/AdvReac Type Severity Reaction Status Date / Time
sulfamethoxazole Allergy Severe Swelling Verified 05/27/24 12:18
[From Bactrim]
trimethoprim [From Bactrim] Allergy Severe Swelling Verified 05/27/24 12:18
Home Medications
myftbqxp-hkkbjdfta-huaycvasa 3.5 mg-10,000 unit/mL-1 % ear drops,susp 2 drp otic (ear) TID ##1 06/02/20
cephalexin 500 mg tablet 500 mg PO QID 5 days #20 tabs 10/05/23
*awaiting med rec
Review of Systems
-
History Source: Patient
A 12 point ROS was completed and negative except as noted: Yes
Physical Exam
Vital Signs
Vital Signs
Temp Pulse Resp BP Pulse Ox
97.3 F 88 17 95/63 95
05/27/24 12:19 05/27/24 15:45 05/27/24 15:45 05/27/24 15:45 05/27/24 15:45
Physical Exam
General: Other (somnolent )
HEENT: PERRLA
Respiratory: Clear; No Wheezes
Cardiac: S1/S2 and Regular Rhythm
GI: Soft and Non Tender
Skin: Warm and Dry; No Rash
Neuro: Awake, Sedated and Other (able to stay awake and answer yes/no questions/ follows commands/ 5/5 strength foot dorsi and plantarflexion )
Psych: Calm
Laboratory Results
-
05/27/24 12:59
05/27/24 12:59
Laboratory Results
Total Bilirubin 0.5 mg/dl (0.2-1.3) 05/27/24 12:59
AST 28 U/L (14-36) 05/27/24 12:59
ALT 21 U/L (0-35) 05/27/24 12:59
Alkaline Phosphatase 74 U/L (38-126) 05/27/24 12:59
Data Reviewed
-
Diagnostic Radiology: Report Reviewed by me
Lab Data: Labs Reviewed by me
Impression/Plan
-
Ms. Robyn Watters is a 43 yo woman who was brought to the ER with somnolence in setting of alcohol use and Alprazolam overdose.
Triage VS: T 97.3, P 103, RR 18, BP 99/72, SpO2 98%
Labs: WBC 7, Hg 11.7, PLT 204, Na 142, K+ 4.4, Cl 106, CO2 26, BUN 15, Cr 0.7, Glucose 104, Ca 9.2, T. Bili 0.5, AST 28, ALT 21, Alk Phos 74
HCG Negative
UA Clear
Tox: negative salicylates, acetaminophen; + Benzodiazepines
Alcohol [address]
IMPRESSION:
No acute intracranial abnormality noted.
Alprazolam Overdose
-patient becoming more alert, following commands
-admit to telemetry, continuous capnography
-no prior hx SI
-1:1 monitoring
-Psychiatry consult
Alcohol Use with History of binge drinking
-MSAS scoring - RN to page if MSAS scores elevated (will not order PRN Ativan right now)
DVT PPx Lovenox subQ
FULL CODE
76 minutes spent on patient care
--- NOTE | 2024-05-27 17:11 | EDRN ---
Dereck Knox MACHINE BINDING FOLDER in to see pt.
--- NOTE | 2024-05-27 17:15 | EDRN ---
Pt's mother in law in room w/ pt at this time.
[2024-05-27 17:23] LABS: Magnesium 2.2 mg/dl (1.6-2.3); Phosphorus 3.5 mg/dl (2.5-4.5)
--- NOTE | 2024-05-27 17:30 | EDRN ---
Dr. Sevilla TT'd about pt drinking and eating at 17:26. A swallow test was done and recorded in chart and Dr. Sevilla informed and diet ordered for pt.
--- NOTE | 2024-05-27 18:00 | EDRN ---
life skills worker just in to converse w/ pt.
[2024-05-27] MEDS: LR 1000 IV (23:01)
[2024-05-28] VITALS (16 sets, daily range): BP systolic 93–132; BP diastolic 55–90
[2024-05-28] MEDS: LOVENOX 40 MG SC (02:12)
[2024-05-28 06:54] LABS: % Basophils 0.3 % (0-2); % Eosinophils 1.8 % (0-6); % Immature Granulocytes 0.2 % (0-0.5); % Lymphocytes 42.1 % (20.5-51.1); % Neutrophils 48.6 % (42.2-75.2); Absolute Eosinophils 0.1 10^3/uL (0-0.7); Absolute Lymphocytes 2.6 10^3/uL (1.2-3.4); Absolute Monocytes 0.4 10^3/uL (0.1-0.6); Hematocrit 32.8 % (37.0-47.0); Hemoglobin 10.7 g/dL (12.0-16.0); Mean Corp Hgb Conc. 32.6 g/dL (33.0-37.0); Mean Corpuscular Volume 95.1 fL (81.0-99.0); Mean Platelet Volume 9.9 fL (7.4-10.4); Nucleated Red Blood Cells % 0 %; Platelet Count 156 10^3/uL (130-400); Red Blood Cell Count 3.45 10^6/uL (4.20-5.40); Red Cell Dist. Width 13.1 % (11.5-14.5); White Blood Cell Count 6.1 10^3/uL (4.8-10.8)
[2024-05-28 07:07] LABS: Blood Urea Nitrogen 14 mg/dl (7-17); Calcium 8.4 mg/dl (8.4-10.2); Carbon Dioxide 23 mmol/L (22-30); Chloride 110 mmol/L (98-107); Estimated Creatinine Clearance 87 ml/min; Glucose 65 mg/dl (70-99); Magnesium 1.9 mg/dl (1.6-2.3); Potassium 4.2 mmol/L (3.5-5.1); Sodium 140 mmol/L (135-145); eGFR > 60.00
--- NOTE | 2024-05-28 09:22 | PTCARENOTE ---
Patient is calm and oriented in bed. She is eating a regular diet and thin liquids without issue. Her mother is at the bedside. Her vital signs are within normal limits, denies pain and nausea, voiding via bedside commode with standby assist. 1:1
observation maintained by ED staff.
--- NOTE | 2024-05-28 09:34 | CM ---
ED CM met with pt (Jody), spouse/Tutu and mother/Pavan bedside
Pt resides with her spouse in a 3SH with 2STE, full flight to 2nd floor
Pt is indep with her ADLs, drives+, denies use of DMEs
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
PCP- Wilmer Dukes
Rx- [facility] [address]
Currently on MSAS protocol- 1
Call with crisis who has signed off due to admission
Awaiting psych eval
Indep throughout room per nursing, AxO 3x during assessment
Discharge Disposition- anticipate home, will watch for psych recs
--- NOTE | 2024-05-28 13:17 | PTCARENOTE ---
Patient took of etCO2 monitoring, she does not want to wear it anymore. She told RN that MD said she could take if off around noon. She is oriented in room with stable vital signs, voiding in bathroom, 1:1 observation for safety maintained
--- NOTE | 2024-05-28 15:08 | W.PN.HOSP.TC ---
Today's Communication/Plan
-
Assessment / Plan
Assessment / Plan
NAD
Scleral Anicteric
MMM
No JVD
CTABL
RRR, S1/S2
Soft, NT, ND, BS+
Warm, Dry
AAOx3
Calm
Polysubstance abuse
-UDS positive for benzodiazepine, alcohol 292
�Await psychiatry eval
�Does not want alcohol rehab at this time
Unintentional overdose on benzodiazepines/alcohol
Psychiatric evaluation pending
Binge drinking
- When she drinks she drinks a lot however she can go days without drinking any type of alcohol
Anxiety
-Thiamine folate
Anemia�normocytic
-Outpatietn PCP follow up
Anticipated Discharge: Within 24 hours
Subjective/Interval History
-
Date of Service: May 28, 2024
Seen and examined at bedside.
No new complaints. No acute overnight events.
Family at bedside
Tells me yesterday that she was upset that and just wanted to sleep for the day and that is why she took 10 pills of Xanax and drink a lot of alcohol with this
Tells me that typically if she is taking Xanax she will take a quarter of a tab
Denies depression suicidal homicidal ideations. Denies auditory visual tactile hallucinations.
Objective Data
-
Labs:
Laboratory Results
05/28/24
05:52
WBC 6.1
Hgb 10.7 L
Hct 32.8 L
Plt Count 156 D
Sodium 140
Potassium 4.2
Chloride 110 H
Carbon Dioxide 23
BUN 14
Creatinine 0.6
Glucose 65 L
Calcium 8.4
Vital Signs:
Vital Signs
Temp Pulse Resp BP Pulse Ox
97.7 F 102 16 132/82 100
05/28/24 12:36 05/28/24 12:08 05/28/24 12:36 05/28/24 12:08 05/28/24 12:08
I&O
05/27/24 05/28/24 05/29/24
06:59 06:59 06:59
Intake Total 1959
Output Total 500 / 500
Balance -500 / -500 1959
--- NOTE | 2024-05-28 18:09 | W.DCSUMMARY ---
Discharge Summary
Discharge Data
Date of Admission: 05/27/24
Date of Discharge: 05/28/24
-
Pending Results: No
Hospital Course
43F hx of anxiety.
Presented after being found unresponsive. Believed to be secondary to unintentional overdose on Xanax and alcohol. Lab work essentially unremarkable apart from some anemia With a hemoglobin of 10.7. Vitals have been stable. Urinating well. Was
evaluated by psychiatry recommend outpatient psychology follow-up. Psychiatry did not recommend 302 or acute inpatient psychiatry at this time as there is no suicidal ideations.
Please stop drinking alcohol. If needed please follow-up with outpatient resources such as alcohol Anonymous.
Discharge Plan
-
Patient Disposition: Home (Routine Discharge)
Discharge Diagnosis/Procedures: unintentional overdose
Condition: Good
Diet: As tolerated
Activity: As tolerated
Activity Restrictions/Additional Instructions:
Presented after being found unresponsive. Believed to be secondary to unintentional overdose on Xanax and alcohol. Lab work essentially unremarkable apart from some anemia With a hemoglobin of 10.7. Vitals have been stable. Urinating well. Was
evaluated by psychiatry recommend outpatient psychology follow-up. Psychiatry did not recommend 302 or acute inpatient psychiatry at this time as there is no suicidal ideations.
Please stop drinking alcohol. If needed please follow-up with outpatient resources such as alcohol Anonymous.
Referrals:
Wilmre Dukes PA-C [Family Provider] -
Prescriptions:
New
folic acid 1 mg Tablet
1 mg PO DAILY Qty: 30 0RF
thiamine mononitrate (vit B1) 100 mg Tablet
100 mg PO BID Qty: 30 0RF
Discontinued
Theragen Tablet
1 tab PO DAILY
alprazolam 0.25 mg Tablet
0.25 mg PO BID PRN (Reason: anxiety)
ibuprofen 200 mg Tablet
400 mg PO DAILYPRN PRN (Reason: mild pain)
Discharge Orders:
Discharge Patient (As Directed); Ordered 05/28/24
Ordered By: Andre Flores
Discharge Date and Time
Print Language: POLISH
--- NOTE | 2024-05-28 18:18 | W.PN.UPDATE ---
Update Note
Progress Note Update
Psychiatric Evaluation dictated.
Patient states she has significant anxiety particularly about her job; she was traumatized about losing her job 6 years ago as it was eliminated. she has family history of anxiety in 2 sisters and father. Yesterday she took 10 pills of 0.25 mg of
Xanax and drank, alcohol level being 292. She does admit to periodic alcohol consumption but not regularly. Father has history of alcoholism but currently sober.
She denies that she intended to harm self, certainly denies current suicidal thoughts and has no past history of such. Appetite and weight is stable, but does have severe insomnia.
I would recommend intensive psychotherapy as well as participation in AA meetings and having a sponsor.
Discussed with and mother, recommended F/U.
[2024-05-28] MEDS: LOVENOX SC (18:21)
== END 2024-05-28 18:32 | disposition home or self-care (01) | DRG 918 ==
LOC: ED 16:57
PROVIDERS: Emergency Medicine; ADMITTING PHYSICIAN Student in an Organized Health Care Education/Training Program; ATTENDING PHYSICIAN Hospitalist; CONSULT PHYSICIAN Psychiatry & Neurology Psychiatry; EMERGENCY PHYSICIAN Emergency Medicine; FAMILY PHYSICIAN Physician Assistant Medical
DX: T42.4X2A Poisoning by benzodiazepines, intentional self-harm, initial encounter (principal); T51.0X2A Toxic effect of ethanol, intentional self-harm, initial encounter; R40.4 Transient alteration of awareness; D64.9 Anemia, unspecified; F10.129 Alcohol abuse with intoxication, unspecified; F41.1 Generalized anxiety disorder; Z81.8 Family history of other mental and behavioral disorders
CPT/HCPCS: 70450; 80048; 80053; 80143; 80179; 80306; 80307; 81003; 82077; 83735; 84100; 84703; 85025; 93005; 96360; 99291

== ENCOUNTER → 2024-07-12 13:46 | Outpatient (REF) | payer BC, SELFPAY | LOC: HWWDC 13:46 | PROVIDERS: ATTENDING PHYSICIAN Obstetrics & Gynecology; FAMILY PHYSICIAN Physician Assistant Medical | DX: Z12.31 Encounter for screening mammogram for malignant neoplasm of breast (principal) | CPT/HCPCS: 77063; 77067 ==